=== PATIENT | female | born 1985 | race Caucasian/White ===

== ENCOUNTER → 2017-03-04 | Outpatient (CLI) | payer MEDICAID | LOC: FIMAGING 16:05 | PROVIDERS: ATTEND Family Medicine | DX: K59.00 Constipation, unspecified (principal) ==

== ENCOUNTER 2017-03-11 19:42 | Emergency (ER) | payer MEDICAID ==
[2017-03-11 19:49] VITALS: TEMP 97.9; O2SAT 100
--- NOTE | 2017-03-11 20:05 | EDPHY ---
H & P Stated Complaint: Vaginal Bleeding HPI/ROS: CHIEF COMPLAINT: Vaginal bleeding HISTORY OF PRESENT ILLNESS: The patient is a 3-week 31 y/o female arriving with her mother complaining of vaginal bleeding onset 4 days ago. She reports she has some chronic abdominal pain and constipation and was evaluated for this at [facility] on 03/07/17, 4 days ago. Labs at that time showed she was . Due to this and persistent vaginal spotting, she was referred to OBGYN. An US was performed, but it was too early in the to glean much information. Serial BHCG since then have increased. Around 18:30 today, 2 hours ago, she had gush of blood she describes as similar to her normal menses in quantity. She called her OBGYN and they referred her to the ED for evaluation. She continues to have bleeding now with some associated left- sided abdominal cramping. Her LNMP was on 02/18/17. She denies other pertinent medical history. REVIEW OF SYSTEMS: A ten point review of systems was performed and is negative with the exception of the items mentioned in the HPI. Source: Patient Exam Limitations: No limitations - Personal History Current Tetanus/Diphtheria Vaccine: Yes Current Tetanus Diphtheria and Acellular Pertussis (TDAP): Yes - Medical/Surgical History PMH: Hx Asthma: No Hx Chronic Respiratory Disease: No Hx Diabetes: No Hx Cardiac Disease: No Hx Renal Disease: No Hx Cirrhosis: No Hx Alcoholism: No Hx HIV/AIDS: No Hx Splenectomy or Spleen Trauma: No Other PMH: pmh: DENIES - Social History Smoking Status: Never smoked Additional Social History: Nonsmoker. No alcohol use. Mother at bedside. 2 children. Works at [employer]. PCP: [facility] - Physical Exam Exam: General Appearance: Alert. Vital signs reviewed. Eyes: Pupils equal and round, no conjunctival injection, no discharge. Anicteric. ENT, Mouth: Mucous membranes are moist, no oropharyngeal erythema or edema. Neck: No lymphadenopathy, supple. Respiratory: Lungs are clear to auscultation; no wheezes, rales, or rhonchi. Cardiovascular: Regular rate and rhythm; no murmur, rub, or gallop. Gastrointestinal: Abdomen is soft and nontender, no masses or organomegaly, bowel sounds normal. Skin: Warm and dry, no rashes on exposed skin, normal color. Back: Nontender to palpation over the thoracolumbar spine. No CVAT. Extremities: No lower extremity edema, no calf tenderness or swelling. Neurological: Alert and oriented. Moving all four extremities easily and equally. Psychiatric: Normal affect. Constitutional: Initial Vital Signs Temperature (C) 36.6 C 03/11/17 19:47 Heart Rate 78 03/11/17 19:47 Respiratory Rate 18 03/11/17 19:47 Blood Pressure 109/77 03/11/17 19:47 O2 Sat (%) 100 03/11/17 19:47 O2 Delivery Mode Room Air Allergies/Adverse Reactions: No Known Allergies Allergy (Unverified 12/03/12 07:55) Home Medications: Medication Instructions Recorded Flonase Allergy Relief 03/11/17 03/11/17 Medical Decision Making - Diagnostics Imaging Results: Rounded anechoic structure, but no yolk sac or embryonic pole--unable to assess viability. Imaging: Discussed imaging studies w/ airplane and engine inspector Radiologist ED Course/Re-evaluation: Obstetrics US ordered. BHCG done earlier today--not repeated. 2151: Dr. Mascorro, radiologist, is unable to rule out ectopic on US and reports it is too early to tell with certainty if there is a gestational sac /viability. Small subchorionic hemorrhage. 2211: Consulted with Dr. Blunt, OBGYN. She recommends follow up on Tuesday as an outpatient with strict return precautions. I discussed the imaging results and recommendations with the patient. She is not hemodynamically unstable and reports minimal bleeding at this time. Beta quants have been rising. She is not in pain. She understands that ectopic or miscarriage are possibilities. She also understands that this could be a viable . There are no ovarian masses and no ovarian torsion is seen on US. She is comfortable with plan for discharge. Departure - Departure Disposition: Home, Routine, Self-Care Clinical Impression: Vaginal bleeding in , Threatened miscarriage Condition: Good Instructions: Threatened Miscarriage (ED), First Trimester Vaginal Bleed (ED) Additional Instructions: Follow up with your OBGYN on Tuesday. Return to the ED for severe abdominal pain , uncontrollable bleeding, fever, fainting, or other worsening of condition. Referrals: Heena Dickerson MD [Primary Care Provider] - As per Instructions Nadia Blunt MD [Medical Doctor] - As per Instructions Report Scribed for: Caitlin Su Report Scribed by: Erin Curtis Date of Report: 03/11/17 Time of Report: 20:30 Physician Review and Approval Statement: 03/11/17 20:05 Portions of this note were transcribed by the medical office specialist. I, Dr. Caitlin Su, personally performed the history, physical exam, and medical decision- making; and confirmed the accuracy of the information in the transcribed note.
[2017-03-11 22:36] VITALS: BP 103/61; PULSE 89; RESP 16
== END 2017-03-11 22:36 | disposition home or self-care (01) ==
DX: O20.0 Threatened abortion (principal); Z3A.01 Less than 8 weeks gestation of pregnancy

== ENCOUNTER → 2017-03-29 | Outpatient (CLI) | payer MEDICAID | LOC: FIMAGING 10:51 | PROVIDERS: ATTEND Obstetrics & Gynecology | DX: O02.89 Other abnormal products of conception (principal) ==

== ENCOUNTER → 2017-05-12 | Outpatient (CLI) | payer MEDICAID | LOC: BMCIMAGING 09:43 | PROVIDERS: ATTEND Family Medicine | DX: R93.8 Abnormal findings on diagnostic imaging of other specified body structures (principal); Z98.890 Other specified postprocedural states ==

== ENCOUNTER → 2019-01-12 | Outpatient (CLI) | payer MEDICAID | LOC: BMCIMAGING 16:54 | PROVIDERS: ATTEND Family Medicine | DX: M54.42 Lumbago with sciatica, left side (principal) ==